=== PATIENT | female | born 1995 | race Caucasian/White ===

== ENCOUNTER 2016-11-04 11:29 | Emergency (ER) | payer OTHER ==
[2016-11-04 12:59] VITALS: BP 119/74
--- NOTE | 2016-11-04 14:00 | UC ---
Breast Complaint - HPI Summary HPI Summary: Delivered son at 35+4 on 10/27/16. Has been exclusively pumping since then, this morning developed fever over 101F with pain underneath L breast. - History of Current Complaint Hx Obtained From: Patient Breast Chief Complaint: Pain, Breast, Left Timing: Constant Breast Pain Radiates To: Left Breast Pain Aggravating Factors: Palpation Breast Associated Signs/Symptoms: Fever - Allergy/Home Medications Allergies/Adverse Reactions: Allergies Allergy/AdvReac Type Severity Reaction Status Date / Time Amoxicillin Allergy Severe Hives Verified 11/04/16 12:58 PMH/Surg Hx/FS Hx/Imm Hx Previously Healthy: Yes - Surgical History Surgical History: None - Family History Known Family History: Negative: Blood Disorder - Social History Lives: With Family Alcohol Use: None Substance Use Type: None Smoking Status (MU): Never Smoked Tobacco - Immunization History Vaccination Up to Date: Yes Review of Systems Constitutional: Fever Skin: Negative Eyes: Negative ENT: Negative Respiratory: Negative Cardiovascular: Negative Gastrointestinal: Negative Genitourinary: Negative Motor: Negative Neurovascular: Negative Musculoskeletal: Negative Neurological: Negative Psychological: Negative All Other Systems Reviewed And Are Negative: Yes Physical Exam Triage Information Reviewed: Yes Appearance: Well-Appearing, No Pain Distress, Well-Nourished Vital Signs: Initial Vital Signs Temp 98.8 F 11/04/16 12:49 Pulse 132 11/04/16 12:49 Resp 14 11/04/16 12:49 BP 119/74 11/04/16 12:49 Pulse Ox 99 11/04/16 12:49 Vital Signs Reviewed: Yes Eye Exam: Normal Eyes: Positive: Conjunctiva Clear ENT Exam: Normal ENT: Positive: Normal ENT inspection, Hearing grossly normal, Pharynx normal, TMs normal Dental Exam: Normal Neck exam: Normal Neck: Positive: Supple, Nontender, No Lymphadenopathy Respiratory Exam: Normal Respiratory: Positive: Chest non-tender, Lungs clear, Normal breath sounds, No respiratory distress, No accessory muscle use Cardiovascular: Positive: No Murmur, Tachycardia Musculoskeletal Exam: Normal Musculoskeletal: Positive: ROM Intact Neurological Exam: Normal Neurological: Positive: Alert Psychological Exam: Normal Skin Exam: Other - Redness, firm on inferior portion of L breast Breast Pain Course/Dx - Diagnoses Provider Diagnoses: Nonpurulent mastitis associated with Discharge - Discharge Plan Condition: Stable Disposition: HOME Prescriptions: Cephalexin CAP* [Keflex CAP*] 500 mg PO QID #28 cap Patient Education Materials: Mastitis (ED) Referrals: Non Staff,Doctor [Primary Care Provider] - Additional Instructions: Pump as much as possible. You can feed your milk to your baby regardless of when you took your medicine. If you want to keep trying to help your baby latch directly onto your nipples, you may have luck with a nipple shield -- these can be found at stores like [employer] in the /breast pump areas. I recommend you talk with a warehouse consultant. At [facility] you can reach the specialists through this number: [phone]. You can also talk to your child's ornament setter for referrals.
== END 2016-11-04 14:11 | disposition home or self-care (01) ==
LOC: UCCORT 11:29
DX: N61.0 Mastitis without abscess (principal); Z88.1 Allergy status to other antibiotic agents
CPT/HCPCS: 99212; G0463

== ENCOUNTER 2017-02-03 11:42 | Emergency (ER) | payer OTHER ==
[2017-02-03 12:00] VITALS: BP 122/77
--- NOTE | 2017-02-03 12:32 | UC ---
Ear Complaint HPI - HPI Summary HPI Summary: "a week of feeling like her ears are plugged. today they itch and burn." Sheis here with her 1 yr old dtr who has been pulling at her ears. She has been swimming 1 wk ago. not tender. no fevers, cough, congestion or sinus pain. Has a 3 mo old son with her and . Last depo was about 6 wks ago. - History of Current Complaint Chief Complaint: UCEar Stated Complaint: EAR Time Seen by Provider: 02/03/17 12:24 Hx Last Menstrual Period: depo shot - Allergies/Home Medications Allergies/Adverse Reactions: Allergies Allergy/AdvReac Type Severity Reaction Status Date / Time Amoxicillin Allergy Severe Hives Verified 11/04/16 12:58 PMH/Surg Hx/FS Hx/Imm Hx Previously Healthy: Yes - Surgical History Surgical History: None - Family History Known Family History: Positive: Respiratory Disease - no asthma Negative: Blood Disorder - Social History Alcohol Use: None Substance Use Type: None Smoking Status (MU): Never Smoked Tobacco - Immunization History Vaccination Up to Date: Yes Review of Systems Constitutional: Negative Skin: Negative Eyes: Negative ENT: Ear Ache Respiratory: Negative Cardiovascular: Negative Gastrointestinal: Negative Genitourinary: Negative Motor: Negative Neurovascular: Negative Musculoskeletal: Negative Neurological: Negative Psychological: Negative All Other Systems Reviewed And Are Negative: Yes Physical Exam Triage Information Reviewed: Yes Appearance: Well-Appearing, No Pain Distress, Well-Nourished Vital Signs: Initial Vital Signs Temp 97.5 F 02/03/17 11:58 Pulse 93 02/03/17 11:58 Resp 14 02/03/17 11:58 BP 122/77 02/03/17 11:58 Pulse Ox 98 02/03/17 11:58 Vital Signs Reviewed: Yes Eye Exam: Normal ENT: Positive: Hearing grossly normal, Pharynx normal, Other: - TMs - mild serous otitis b/l, rt > left. Negative: Pharyngeal erythema, Nasal drainage, Tonsillar swelling, Tonsillar exudate Dental Exam: Normal Neck exam: Normal Neck: Positive: Supple, Nontender, No Lymphadenopathy Respiratory Exam: Normal Respiratory: Positive: Lungs clear, Normal breath sounds, No respiratory distress, No accessory muscle use Cardiovascular Exam: Normal Cardiovascular: Positive: RRR, No Murmur, Pulses Normal, Brisk Capillary Refill Abdomen Description: Positive: Nontender, Soft Musculoskeletal Exam: Normal Neurological Exam: Normal Psychological Exam: Normal Skin Exam: Normal Ear Complaint Course/Dx - Differential Dx/Diagnosis Differential Diagnosis/HQI/PQRI: Cerumen Impaction, Otitis Externa, Otitis Media , Other - serous otitis Provider Diagnoses: B/L serous otitis Discharge - Discharge Plan Condition: Stable Disposition: HOME Prescriptions: Fluticasone Propionate (Nasal) [Allergy Nasal [place] [address] Ho] 50 mcg NA DAILY #1 spr Patient Education Materials: Serous Otitis Media (ED) Referrals: No Primary Care Phys,NOPCP [Primary Care Provider] - [facility] [Provider Group] Additional Instructions: You can also take an OTC anti-histamine such as cetirizine daily that may help your symptoms.
== END 2017-02-03 12:56 | disposition home or self-care (01) ==
LOC: UCCORT 11:42
DX: H65.93 Unspecified nonsuppurative otitis media, bilateral (principal)
CPT/HCPCS: 99212; G0463

== ENCOUNTER 2017-04-15 12:19 | Emergency (ER) | payer OTHER ==
[2017-04-15 13:13] VITALS: BP 121/80
--- NOTE | 2017-04-15 14:46 | UC ---
Ear Complaint HPI - HPI Summary HPI Summary: patient has had ear pain for 2 months, was given flonase at one point but does not use it on a regular basis - History of Current Complaint Chief Complaint: UCEar Stated Complaint: BILATERAL EAR PAIN Time Seen by Provider: 04/15/17 14:25 Hx Obtained From: Patient Hx Last Menstrual Period: on depo ?: No Onset/Duration: Sudden Onset, Lasting Weeks Severity Initially: Moderate Severity Currently: Moderate Related History: Seasonal Allergies - Allergies/Home Medications Allergies/Adverse Reactions: Allergies Allergy/AdvReac Type Severity Reaction Status Date / Time Amoxicillin Allergy Severe Hives Verified 04/15/17 13:09 Home Medications: Home Medications Melatonin [Melatonin Maximum Strengt] 5 mg PO BEDTIME 04/15/17 [History Confirmed 04/15/17] medroxyPROGESTERone ACETATE* [DEPO-Provera] 150 mg IM SEE INSTRUCTIONS 04/15/17 [History Confirmed 04/15/17] PMH/Surg Hx/FS Hx/Imm Hx Previously Healthy: Yes - Surgical History Surgical History: None - Family History Known Family History: Positive: Respiratory Disease - no asthma Negative: Blood Disorder - Social History Alcohol Use: None Substance Use Type: None Smoking Status (MU): Never Smoked Tobacco - Immunization History Vaccination Up to Date: Yes Review of Systems Constitutional: Negative Skin: Negative Eyes: Negative ENT: Ear Ache Respiratory: Negative Cardiovascular: Negative Gastrointestinal: Negative Genitourinary: Negative Motor: Negative Neurovascular: Negative Musculoskeletal: Negative Neurological: Negative Psychological: Negative Is Patient Immunocompromised?: No All Other Systems Reviewed And Are Negative: Yes Physical Exam Triage Information Reviewed: Yes Appearance: Well-Appearing, Well-Nourished, Pain Distress Vital Signs: Initial Vital Signs Temp 98.8 F 04/15/17 13:09 Pulse 103 04/15/17 13:09 Resp 16 04/15/17 13:09 BP 121/80 04/15/17 13:09 Pulse Ox 98 04/15/17 13:09 Vital Signs Reviewed: Yes Eye Exam: Normal ENT Exam: Normal ENT: Positive: Pharynx normal, TMs normal, Other: - fluid behind both ears Dental Exam: Normal Neck exam: Normal Respiratory Exam: Normal Respiratory: Positive: Chest non-tender, Lungs clear, Normal breath sounds Cardiovascular Exam: Normal Cardiovascular: Positive: RRR, No Murmur, Pulses Normal Abdominal Exam: Normal Bowel Sounds: Positive: Present Musculoskeletal Exam: Normal Musculoskeletal: Positive: Strength Intact, ROM Intact, No Edema Neurological Exam: Normal Psychological Exam: Normal Skin Exam: Normal Ear Complaint Course/Dx - Course Course Of Treatment: hx obtained, exam performed ,meds reviewed, serous otitis biltareal - Differential Dx/Diagnosis Differential Diagnosis/HQI/PQRI: Otitis Externa, Otitis Media, URI, Other Provider Diagnoses: serous otitis bilateral Discharge - Discharge Plan Condition: Stable Disposition: HOME Prescriptions: predniSONE TAB* [Deltasone TAB*] 20 mg PO DAILY #18 tab Patient Education Materials: Serous Otitis Media (ED) Referrals: No Primary Care Phys,NOPCP [Primary Care Provider] - Additional Instructions: 1. take medication as prescribed 2. I recommedn continuing with the flonase
== END 2017-04-15 14:50 | disposition home or self-care (01) ==
LOC: UCCORT 12:19
DX: H65.93 Unspecified nonsuppurative otitis media, bilateral (principal); Z88.1 Allergy status to other antibiotic agents
CPT/HCPCS: 99212; G0463

== ENCOUNTER 2017-06-22 16:55 | Emergency (ER) | payer OTHER ==
[2017-06-22 17:04] VITALS: BP 125/64
[2017-06-22] MEDS ORDERED: methylPREDNISolone 125 MG* 2 ML VIAL IM ONE (17:09)
--- NOTE | 2017-06-22 17:19 | UC ---
Skin Complaint HPI - HPI Summary HPI Summary: Pt c/o sudden onset of pruritic, erythematous rash that began on neck and has spread across upper torso and upper extremities. Pt denies, angio edema, throt or tongue swelling, or difficulty breathing. - History of Current Complaint Chief Complaint: UCSkin Time Seen by Provider: 06/22/17 16:59 Stated Complaint: SKIN COMPLAINT Hx Obtained From: Patient Hx Last Menstrual Period: unknown, depo ?: No Onset/Duration: Sudden Onset, Lasting Hours, Worse Since - onset Skin Exposure Onset/Duration: Hours Ago Timing: Constant Onset Severity: Mild Current Severity: Moderate Location: Diffuse Character: Pruritus, Redness Aggravating Factor(s): Nothing Alleviating Factor(s): Unknown Associated Signs & Symptoms: Positive: Rash - Allergy/Home Medications Allergies/Adverse Reactions: Allergies Allergy/AdvReac Type Severity Reaction Status Date / Time Amoxicillin Allergy Severe Hives Verified 06/22/17 17:04 Review of Systems Constitutional: Negative Skin: Rash Eyes: Negative ENT: Negative Respiratory: Negative Cardiovascular: Negative Gastrointestinal: Negative Genitourinary: Negative Motor: Negative Neurovascular: Negative Musculoskeletal: Negative Neurological: Negative Psychological: Negative Is Patient Immunocompromised?: No All Other Systems Reviewed And Are Negative: Yes PMH/Surg Hx/FS Hx/Imm Hx Previously Healthy: Yes - Surgical History Surgical History: None - Family History Known Family History: Positive: Respiratory Disease - no asthma Negative: Blood Disorder - Social History Occupation: Employed Full-time Lives: With Family Alcohol Use: None Substance Use Type: None Smoking Status (MU): Never Smoked Tobacco Have You Smoked in the Last Year: No - Immunization History Vaccination Up to Date: Yes Physical Exam Triage Information Reviewed: Yes Appearance: Well-Appearing Vital Signs: Initial Vital Signs Temp 98.6 F 06/22/17 17:00 Pulse 65 06/22/17 17:00 Resp 16 06/22/17 17:00 BP 125/64 06/22/17 17:00 Pulse Ox 100 06/22/17 17:00 Vital Signs Reviewed: Yes Eye Exam: Normal ENT Exam: Normal Dental Exam: Normal Neck exam: Normal Respiratory Exam: Normal Cardiovascular Exam: Normal Abdominal Exam: Normal Musculoskeletal Exam: Normal Neurological Exam: Normal Psychological Exam: Normal Skin: Positive: rashes - diffuse urticaria on upper torso and extremities Course/Dx - Differential Diagnoses - Skin Complaint Differential Diagnoses: Allergic Reaction, Drug Rash, Urticaria - Diagnoses Provider Diagnoses: general allergic reaction- unknown allergen Discharge - Discharge Plan Condition: Stable Disposition: HOME Prescriptions: Cetirizine HCl [Eql All Day Allergy Child] 10 ml PO DAILY #70 [place] predniSONE TAB* [Deltasone TAB*] 40 mg PO DAILY #10 tab predniSONE TAB* [Deltasone TAB*] 5 mg PO DAILY #5 tab Patient Education Materials: General Allergic Reaction (ED) Referrals: No Primary Care Phys,NOPCP [Primary Care Provider] - As Soon As Possible
[2017-06-22] MEDS: diPHENhydraMINE PO* 50 MG PO ONE ×2 (17:20→17:31)
[2017-06-22] MEDS ORDERED: diPHENhydraMINE LIQ* 12.5 MG/5 ML UDC PO ONE (17:23)
== END 2017-06-22 17:36 | disposition home or self-care (01) ==
LOC: UCCORT 16:55
DX: T78.40XA Allergy, unspecified, initial encounter (principal); X58.XXXA Exposure to other specified factors, initial encounter; L50.9 Urticaria, unspecified; Z88.1 Allergy status to other antibiotic agents
CPT/HCPCS: 96372; 99212; A9270-GY; G0463; J2930

== ENCOUNTER 2017-07-08 09:18 | Emergency (ER) | payer OTHER ==
[2017-07-08 09:25] VITALS: BP 122/85
--- NOTE | 2017-07-08 09:47 | UC ---
Respiratory Complaint HPI - HPI Summary HPI Summary: Here for cough and congestion and sore throat. She has no chronic lung disease. Non smoker. This has been two days. - History of Current Complaint Chief Complaint: UCRespiratory Stated Complaint: RT EAR HEARING LOSS,COUGH/ST Time Seen by Provider: 07/08/17 09:36 Hx Obtained From: Patient Hx Last Menstrual Period: unknown, depo Onset/Duration: Gradual Onset, Lasting Days - started yesterday. Timing: Constant Severity Initially: Moderate Severity Currently: Moderate Character: Cough: Nonproductive Aggravating Factors: Deep Breaths, Recumbent Position Alleviating Factors: Upright Position, Spontaneous Resolution Associated Signs And Symptoms: Positive: Fever, Chills, URI, Nasal Congestion. Negative: Dyspnea, Calf Pain, Calf Swelling - Allergies/Home Medications Allergies/Adverse Reactions: Allergies Allergy/AdvReac Type Severity Reaction Status Date / Time Amoxicillin Allergy Severe Hives Verified 07/08/17 09:25 Home Medications: Home Medications Atenolol TAB* [Tenormin TAB* 50 MG] 50 mg PO DAILY 07/08/17 [History Confirmed 07/08/17] PMH/Surg Hx/FS Hx/Imm Hx Previously Healthy: No - Palpitations and thyroid disease. - Surgical History Surgical History: None - Family History Known Family History: Positive: Respiratory Disease - no asthma Negative: Blood Disorder - Social History Occupation: Employed Full-time Alcohol Use: None Substance Use Type: None Smoking Status (MU): Never Smoked Tobacco Have You Smoked in the Last Year: No - Immunization History Vaccination Up to Date: Yes Review of Systems Constitutional: Fever ENT: Sore Throat, Sinus Congestion Respiratory: Cough All Other Systems Reviewed And Are Negative: Yes Physical Exam Triage Information Reviewed: Yes Appearance: Well-Appearing, No Pain Distress, Well-Nourished Vital Signs: Initial Vital Signs Temp 97.5 F 07/08/17 09:21 Pulse 68 07/08/17 09:21 Resp 18 07/08/17 09:21 BP 122/85 07/08/17 09:21 Pulse Ox 100 07/08/17 09:21 Vital Signs Reviewed: Yes Eyes: Positive: Conjunctiva Clear ENT: Positive: Pharynx normal, Nasal congestion, Hoarse voice. Negative: Pharyngeal erythema, Tonsillar swelling, Tonsillar exudate, Sinus tenderness, Uvula midline Neck: Positive: Supple, Nontender, No Lymphadenopathy Respiratory: Positive: Lungs clear, Normal breath sounds, No respiratory distress, No accessory muscle use. Negative: Respiratory distress, Decreased breath sounds, Accessory muscle use, Crackles, Rhonchi, Stridor, Wheezing Cardiovascular: Positive: RRR, No Murmur, Pulses Normal, Brisk Capillary Refill Abdomen Description: Positive: Nontender, No Organomegaly, Soft. Negative: Distended, Guarding Musculoskeletal: Positive: Strength Intact, ROM Intact Neurological: Positive: Alert, Muscle Tone Normal, Fatigued Psychological: Positive: Age Appropriate Behavior Skin: Negative: rashes UC Diagnostic Evaluation - Laboratory O2 Sat by Pulse Oximetry: 100 Respiratory Course/Dx - Differential Dx/Diagnosis Provider Diagnoses: viral uri. Discharge - Discharge Plan Condition: Good Disposition: HOME Patient Education Materials: Upper Respiratory Infection (ED) Forms: *Work Release Referrals: RUBY Madsen [Primary Care Provider] -
== END 2017-07-08 09:51 | disposition home or self-care (01) ==
LOC: UCCORT 09:18
DX: J06.9 Acute upper respiratory infection, unspecified (principal)
CPT/HCPCS: 99211; G0463

== ENCOUNTER 2017-12-02 16:54 | Emergency (ER) | payer OTHER ==
[2017-12-02 17:25] VITALS: BP 125/84
--- NOTE | 2017-12-02 17:36 | UC ---
Ear Complaint HPI - HPI Summary HPI Summary: C/O earache over the last several weeks. Unable to pop ears. No fevers. - History of Current Complaint Chief Complaint: UCEar Stated Complaint: BILATERAL EAR PAIN Time Seen by Provider: 12/02/17 17:28 Hx Obtained From: Patient Hx Last Menstrual Period: depo ?: No Onset/Duration: Gradual Onset, Lasting Weeks - 2, Still Present Severity Initially: Mild Severity Currently: Moderate Pain Intensity: 5 Alleviating Factors: Nothing Related History: Seasonal Allergies - Allergies/Home Medications Allergies/Adverse Reactions: Allergies Allergy/AdvReac Type Severity Reaction Status Date / Time MS Amoxicillin [Amoxicillin] Allergy Severe Hives Verified 07/08/17 09:25 amoxicillin Allergy Hives Verified 12/02/17 17:19 PMH/Surg Hx/FS Hx/Imm Hx Endocrine History: Diabetes, Hyperthyroidism - Surgical History Surgical History: None - Family History Known Family History: Positive: Respiratory Disease - no asthma Negative: Diabetes, Blood Disorder - Social History Occupation: Employed Full-time Lives: With Family Alcohol Use: None Substance Use Type: None Smoking Status (MU): Never Smoked Tobacco Have You Smoked in the Last Year: No - Immunization History Vaccination Up to Date: Yes Review of Systems ENT: Ear Ache, Nasal Discharge Is Patient Immunocompromised?: Yes - Diabetes All Other Systems Reviewed And Are Negative: Yes Physical Exam Triage Information Reviewed: Yes Appearance: Well-Appearing, No Pain Distress, Thin Vital Signs: Initial Vital Signs Temp 99 F 12/02/17 17:20 Pulse 98 12/02/17 17:20 Resp 16 12/02/17 17:20 BP 125/84 12/02/17 17:20 Pulse Ox 98 12/02/17 17:20 Vital Signs Reviewed: Yes Eyes: Positive: Conjunctiva Clear ENT: Positive: Pharynx normal, Nasal congestion - with allergic changes, TMs normal Neck exam: Normal Respiratory Exam: Normal Cardiovascular Exam: Normal Musculoskeletal Exam: Normal Neurological Exam: Normal Psychological Exam: Normal Skin Exam: Normal Ear Complaint Course/Dx - Differential Dx/Diagnosis Differential Diagnosis/HQI/PQRI: Barotrauma, Otitis Externa, Otitis Media Provider Diagnoses: Allergic rhinitis. Bilateral eustachian tube dysfunction. Discharge - Sign-Out/Discharge Documenting (check all that apply): Discharge/Admit/Transfer - Discharge Plan Condition: Stable Disposition: HOME Patient Education Materials: Allergic Rhinitis (ED), Earache (ED) Referrals: RUBY Madsen [Primary Care Provider] - Additional Instructions: NEILMED SINUS RINSE: CHECK OUT AT [facility] [employer] Saline nasal wash helps with mucous, allergies and congestion. It can be used up to twice a day or only as needed. Use lukewarm tap water. It does not have to be sterilized or distilled water. Do 1/3 on each side and snort out of both nostrils. Repeat the process with 1/6 of the bottle on each side with snorting in between to finish the solution in the bottle - Billing Disposition and Condition Condition: STABLE Disposition: HOME
== END 2017-12-02 17:51 | disposition home or self-care (01) ==
LOC: UCCORT 16:54
DX: J30.9 Allergic rhinitis, unspecified (principal); H69.93 Unspecified Eustachian tube disorder, bilateral; Z88.3 Allergy status to other anti-infective agents
CPT/HCPCS: 99211; G0463

== ENCOUNTER 2018-07-16 10:36 | Emergency (ER) | payer OTHER ==
--- OUTSIDE RECORDS SUMMARY | 2018-07-16 10:48 | XMS REPORT | Continuity of Care Document ---
:1995 External Reference #:[id number] Author Name Anshul Shelby Care Team Providers Name Role Phone Peterson John MD Primary Care Physician Unavailable Payers Type Date Identification Numbers Payment Provider Subscriber Policy Number: [id number] Sunil Gonzalez PayID: [id number] [address] [place] [address] Advance Directives Description No Information Available Problems Description No Information Family History Date Family Member(s) Problem(s) Comments Mother Arthritis Mother Hypothyroidism Social History Type Date Description Comments Sex Unknown Marital Status Single Lives With Boyfriend Occupation employed at [employer] ETOH Use Denies alcohol use Recreational Drug Use Denies Drug Use Tobacco Use Start: Unknown End: Patient is a former smoker Unknown Smoking Status Reviewed: 07/11/18 Patient is a former smoker Exercise Type/Frequency Exercises sporadically Allergies, Adverse Reactions, Alerts Date Description Reaction Status Severity Comments 04/25/2018 Amoxicillin Urticaria Active Mild Medications Medication Date Status Form Strength Qnty SIG Indications Ordering Provider Freestyle 05/30 Active Device 1unit use every E10.9 Laurent Christ/[place]/Flash s 8 hours MD [facility] Monitoring System with sensor Freestyle 05/[address] E10.9 Laurent Christ/Sensor/Flash s device on MD Kwame Monitoring System skin every 14 days; use with reader every 8 hours 2 per month Pen [place] 04/26 Active Misc 31G X 8 150un use with Laurent mm its insulin MD Kwame pens 4 times daily. Precision Xtra 04/25 Active Strips 100un use 4 E10.9 Laurent Blood Glucose Test /2017 its times MD Kwame Strips daily and as needed for glucose testing Precision Xtra 09/27 Active Device 1unit Use With E10.9 Laurent s Glucose/K MD Kwame etone Strips Precision Xtra 04/25 Active Strips 20uni Use as E10.9 Laurent Ketone ts Needed MD Kwame For Ketone Testing Medroxyprogesteron Active Suspension 150mg/ml inject Unknown e Acetate /0000 once every 3 months Methimazole 00 Active Tablets 10mg 60tab 20mg by Laurent /0000 s mouth MD Kwame once daily in the morning Keto-Diastix Active Strips as needed Unknown /0000 Admelog Solostar Active Solution 100Unit/M 15ml use 10 Laurent Pen-Inject L units MD Kwame with every meal plus sliding scale, max 50 units daily Basaglar Kwikpen Active Solution 100Unit/M 15ml 40 units Laurent /0000 Pen-Inject L daily MD Kwame True Metrix Go Active Kit w/Device use daily Unknown Blood Glucose /0000 as Meter directed last visit: 08/09/17 True Metrix Blood Active Strips test 3 Unknown Glucosetest Strips /0000 times daily last visit: 08/09/17 Lantus Solostar 04/08 Hx Solution 100Unit/M 15 units Pen-Inject L daily MD Kwame - 03/30 Atenolol Hx Tablets 50mg 30tab 1 by Laurent /0000 s mouth MD Kwame - every day 07/11 Humalog Hx Solution 100Unit/M 30 units Unknown /0000 L daily - 04/24 Immunizations Description No Information Available Vital Signs Date Vital Result Comment 07/11/2018 9:10am Height 67 inches 5'7" Weight 129.00 lb w/ shoes Heart Rate 70 /min BP Systolic Sitting 113 mmHg BP Diastolic Sitting 74 mmHg BMI (Body Mass Index) 20.2 kg/m2 05/30/2018 9:14am Height 67 inches 5'7" Weight 116.00 lb w/ shoes Heart Rate 77 /min BP Systolic Sitting 121 mmHg BP Diastolic Sitting 74 mmHg BMI (Body Mass Index) 18.2 kg/m2 04/25/2018 10:49am Height 67 inches 5'7" Weight 104.00 lb w/ shoes Heart Rate 112 /min BP Systolic Sitting 119 mmHg BP Diastolic Sitting 77 mmHg BMI (Body Mass Index) 16.3 kg/m2 Results Test Date Facility Test Result H/L Range Note Laboratory test finding 07/11/2018 [facility] Glucose Random 264 Hemoglobin A1c 10.7 High 5-7 CBC Auto Diff 06/06/2018 [facility] White Blood 4.8 10^3/uL N 3.5-10.[address] [place] [address] [phone] Red Blood Count 5.20 10^6/uL N 4.00-5.40 Hemoglobin 14.2 g/dL N 12.0-16.0 Hematocrit 42 % N 35-47 Mean Corpuscular Volume 81 fL N 80-97 Mean Corpuscular Hemoglobin 27 pg N 27-31 Mean Corpuscular HGB Conc 34 g/dL N 31-36 Red Cell Distribution Width 13 % N 10.5-15 Platelet Count 167 10^3/uL N 150-450 Mean Platelet Volume 9.0 fL N 7.4-10.4 Abs Neutrophils 2.7 10^3/uL N 1.5-7.7 Abs Lymphocytes 1.6 10^3/uL N 1.0-4.8 Abs Monocytes 0.4 10^3/uL N 0-0.8 Abs Eosinophils 0.1 10^3/uL N 0-0.6 Abs Basophils 0 10^3/uL N 0-0.2 Abs Nucleated RBC 0 10^3/uL Granulocyte % 56.7 % N 38-83 Lymphocyte % 34.4 % N 25-47 Monocyte % 7.5 % High 0-7 Eosinophil % 1.2 % N 0-6 Basophil % 0.2 % N 0-2 Nucleated Red Blood Cells % 0 Laboratory test 06/06/2018 [facility] TSH (Thyroid 0.00 Low 0.34-5.[address] Stim Horm) mcIU/[place] [address] [phone] Free T4 (Free Thyroxine) 1.44 ng/dL High 0.61-1.12 T3 Free 5.20 pg/mL High 2.5-3.9 Comp Metabolic Panel 06/06/2018 [facility] Sodium 134 mmol/L Low 135-[address] [place] [address] [phone] Potassium 4.4 mmol/L N 3.5-5.0 Chloride 103 mmol/L N 101-111 Co2 Carbon Dioxide 22 mmol/L N 22-32 Anion Gap 9 mmol/L N 2-11 Glucose 411 mg/dL High 70-100 Blood Urea Nitrogen 15 mg/dL N 6-24 Creatinine 0.64 mg/dL N 0.51-0.95 BUN/Creatinine Ratio 23.4 High 8-20 Calcium 9.8 mg/dL N 8.6-10.3 Total Protein 6.7 g/dL N 6.4-8.9 Albumin 4.0 g/dL N 3.2-5.2 Globulin 2.7 g/dL N 2-4 Albumin/Globulin Ratio 1.5 N 1-3 Total Bilirubin 0.70 mg/dL N 0.2-1.0 Alkaline Phosphatase 118 U/L High 34-104 Alt 17 U/L N 7-52 Ast 17 U/L N 13-39 Egfr Non- 115.0 >60 Egfr 139.1 >60 1 Laboratory test finding 05/30/2018 [facility] Glucose Random 236 Laboratory test finding 04/25/2018 [facility] Glucose Random 425 Ketones 0.1 1 Because ethnic data is not always readily available, this report includes an eGFR for both -Americans and non- Americans. The National Kidney Disease Education Program (NKDEP) does not endorse the use of the MDRD equation for patients that are not between the ages of 18 and 70, are , have extremes of body size, muscle mass, or nutritional status, or are non- or non-. According to the National Kidney Foundation, irrespective of diagnosis, the stage of the disease is based on the level of kidney function: Stage Description GFR(mL/min/1.73 m(2)) 1 Kidney damage with normal or decreased GFR 90 2 Kidney damage with mild decrease in GFR 60-89 3 Moderate decrease in GFR 30-59 4 Severe decrease in GFR 15-29 5 Kidney failure <15 (or dialysis) Procedures Description No Information Available Encounters Type Date Location Provider Dx Diagnosis Office Visit 05/30/2018 [facility] Mehran Puente MD E10.9 Type 1 diabetes 9:20a [facility] mellitus without complications E05.00 Thyrotoxicosis w diffuse goiter w/o thyrotoxic crisis Office Visit 04/25/2018 [facility] and Mehran Puente, E10.9 Type 1 diabetes 11:20a [facility] of mellitus without [facility] complications E05.00 Thyrotoxicosis w diffuse goiter w/o thyrotoxic crisis Plan of Treatment 07/11/2018 - Mehran Puente MDE10.9 Type 1 diabetes mellitus without complicationsNew Labs:Glucose Random, Scheduled: 07/11/18Hemoglobin A1c, Scheduled: 07/11/18Instructions:1. Increase Basaglar to 40 units once daily. 2. Continue Admelog as you are. 3. Start using Freestyle Christ sensory and reader. 4. Stop atenolol. 5. Get thyroid function tests today. 6. Plan to reduce methimazole in the future. 7. Return in 6 weeks for a follow-up visit at [facility] in [place].E05.00 Thyrotoxicosis with diffuse goiter without thyrotoxic crisis
[2018-07-16 11:05] VITALS: BP 131/77
--- NOTE | 2018-07-16 11:18 | UC ---
Back Pain HPI - HPI Summary HPI Summary: lower back pain x 3 days pain is sever 8 out of 10 , sharp no radiation of pain , worse with movements, better with rest - History of Current Complaint Chief Complaint: UCBackPain Stated Complaint: LOWER BACK PAIN Time Seen by Provider: 07/16/18 10:56 Hx Obtained From: Patient Hx Last Menstrual Period: unknown ?: No Onset/Duration: Gradual Onset, Lasting Days - 3, Still Present Timing: Constant Severity Initially: Moderate Severity Currently: Severe Pain Intensity: 8 Back Pain: Is Discrete @ - lower back Character: Spasmodic Aggravating Factor(s): Movement, Lifting, Bending, Walking, Cough Alleviating Factor(s): Rest Associated Signs And Symptoms: Positive: Weakness. Negative: Swelling, Redness , Bruising, Fever, Numbness, Tingling, Abdominal Pain, Flank Pain, Bladder Incontinence, Bowel Incontinence, Weight Loss, Pain with Weight Bearing - Allergies/Home Medications Allergies/Adverse Reactions: Allergies Allergy/AdvReac Type Severity Reaction Status Date / Time amoxicillin Allergy Hives Verified 12/02/17 17:19 Home Medications: Home Medications [place] Insulin 0 ml SUBCUT TID PRN 07/16/18 [History] Insulin Glargine,Hum.rec.anlog [Basaglar Kwikpen] 40 unit SC DAILY 07/16/18 [ History Confirmed 07/16/18] PMH/Surg Hx/FS Hx/Imm Hx Endocrine History: Diabetes, Hyperthyroidism - Surgical History Surgical History: None - Family History Known Family History: Positive: Respiratory Disease - no asthma Negative: Diabetes, Blood Disorder - Social History Alcohol Use: None Substance Use Type: None Smoking Status (MU): Never Smoked Tobacco Have You Smoked in the Last Year: No - Immunization History Vaccination Up to Date: Yes Review of Systems All Other Systems Reviewed And Are Negative: Yes Constitutional: Positive: Negative Skin: Positive: Negative Eyes: Positive: Negative ENT: Positive: Negative Respiratory: Positive: Negative Is Patient Immunocompromised?: No Physical Exam Triage Information Reviewed: Yes Appearance: Well-Nourished, Pain Distress Vital Signs: Initial Vital Signs Temp 98.2 F 07/16/18 11:01 Pulse 100 07/16/18 11:01 Resp 15 07/16/18 11:01 BP 131/77 07/16/18 11:01 Pulse Ox 99 07/16/18 11:01 Vital Signs Reviewed: Yes Eyes: Positive: Conjunctiva Clear ENT: Positive: Normal ENT inspection, Hearing grossly normal, Pharynx normal Neck: Positive: Supple, Nontender, No Lymphadenopathy Respiratory: Positive: Chest non-tender, Lungs clear, Normal breath sounds Cardiovascular: Positive: No Murmur, Tachycardia Musculoskeletal: Positive: Other: - lower back : no swelling, no erythema, no tenderness, pain with flexion and extension , limited ROM on flexion Back Pain Course/Dx - Differential Dx/Diagnosis Provider Diagnosis: Strain of fascia of lower back Discharge - Sign-Out/Discharge Documenting (check all that apply): Patient Departure All imaging exams completed and their final reports reviewed: No Studies - Discharge Plan Condition: Stable Disposition: HOME Prescriptions: Cyclobenzaprine TAB* [Flexeril 10 MG TAB*] 10 mg PO BID PRN #20 tab PRN Reason: Pain Naproxen [Naproxen 500 mg tab] 500 mg PO BID #20 tablet. Patient Education Materials: Low Back Strain (ED) Forms: *Work Release Referrals: Esther Crawley MD [Primary Care Provider] - 7 Days - Billing Disposition and Condition Condition: STABLE Disposition: Home
== END 2018-07-16 11:22 | disposition home or self-care (01) ==
LOC: UCCORT 10:36
DX: X58.XXXA Exposure to other specified factors, initial encounter (principal); Y92.9 Unspecified place or not applicable; S39.012A Strain of muscle, fascia and tendon of lower back, initial encounter; Z88.0 Allergy status to penicillin; E11.9 Type 2 diabetes mellitus without complications; Z79.4 Long term (current) use of insulin
CPT/HCPCS: 99212; G0463

== ENCOUNTER 2018-09-18 09:30 | Emergency (ER) | payer OTHER ==
[2018-09-18] MEDS ORDERED: Ondansetron ODT TAB* 4 MG PO ONE (09:53)
--- NOTE | 2018-09-18 10:42 | UC ---
General HPI - HPI Summary HPI Summary: nausea x 2 days. vomiting x 1 day. weakness. BS was "high"/not measurable 2 days ago and is currently 456 on continuos/ 367 glucometer. Hx IDDM. last insulin was long acting last pm 40 units. none today because unable to eat/drink without vomiting. no fever or diarrhea. admits to prior Hx DKA and this feels the same. - History of Current Complaint Chief Complaint: UCGI Stated Complaint: HIGH BLOOD SUGAR, NAUSEA Time Seen by Provider: 09/18/18 10:33 Hx Obtained From: Patient Hx Last Menstrual Period: unknown Onset/Duration: Gradual Onset Timing: Constant Pain Intensity: 8 Associated Signs & Symptoms: Negative: Cough, Chest Pain, SOB - Allergy/Home Medications Allergies/Adverse Reactions: Allergies Allergy/AdvReac Type Severity Reaction Status Date / Time amoxicillin Allergy Hives Verified 09/18/18 10:18 Home Medications: Home Medications Insulin Glargine,Hum.rec.anlog [Basaglar Kwikpen] 40 unit SC QPM 09/18/18 [ History Confirmed 09/18/18] Methimazole TAB* [Tapazole TAB*] 30 mg PO DAILY 09/18/18 [History Confirmed ] PMH/Surg Hx/FS Hx/Imm Hx Endocrine History: Diabetes, Thyroid Disease - Surgical History Surgical History: None - Family History Known Family History: Positive: Respiratory Disease - no asthma Negative: Diabetes, Blood Disorder - Social History Alcohol Use: None Substance Use Type: None Smoking Status (MU): Never Smoked Tobacco Have You Smoked in the Last Year: No - Immunization History Vaccination Up to Date: Yes Review of Systems All Other Systems Reviewed And Are Negative: Yes Constitutional: Positive: Fatigue Skin: Positive: Negative Eyes: Positive: Negative ENT: Positive: Negative Respiratory: Positive: Negative Cardiovascular: Positive: Palpitations - chronic Gastrointestinal: Positive: Vomiting, Nausea. Negative: Abdominal Pain, Diarrhea Genitourinary: Negative: Dysuria, Frequency, Urgency Motor: Positive: Weakness Neurovascular: Positive: Negative Musculoskeletal: Positive: Negative Neurological: Positive: Negative Psychological: Positive: Negative Physical Exam Triage Information Reviewed: Yes Appearance: Ill-Appearing - but non toxic, Other: - ketotic odor to breath Vital Signs: Initial Vital Signs Temp 98.3 F 09/18/18 10:08 Pulse 137 09/18/18 10:08 Resp 18 09/18/18 10:08 BP 141/69 09/18/18 10:08 Pulse Ox 100 09/18/18 10:08 Vital Signs Reviewed: Yes Eyes: Positive: Conjunctiva Clear ENT: Positive: TMs normal, Other - Lips dry. Negative: Pharyngeal erythema, Nasal congestion, Nasal drainage Neck: Positive: Supple, Nontender, No Lymphadenopathy Respiratory: Positive: Lungs clear, Normal breath sounds, No respiratory distress Cardiovascular: Positive: No Murmur, Tachycardia - 120 Abdomen Description: Positive: Nontender, No Organomegaly, Soft. Negative: Distended, Guarding Bowel Sounds: Positive: Present Musculoskeletal: Positive: ROM Intact Neurological: Positive: Alert Psychological: Positive: Normal Response To Family, Age Appropriate Behavior Skin Exam: Normal Course/Dx - Differential Dx - Multi-Symptom Differential Diagnoses: Other - DKA, Dehydration, hyperglycemia, n/v, electrolytes abnormalities - Diagnoses Provider Diagnosis: Hyperglycemia due to type 1 diabetes mellitus, Dehydration, Nausea & vomiting, Weakness Discharge - Sign-Out/Discharge Documenting (check all that apply): Patient Departure All imaging exams completed and their final reports reviewed: No Studies - Discharge Plan Condition: Stable Disposition: TRANS HIGHER LVL OF CARE FAC Referrals: Esther Crawley MD [Primary Care Provider] - - Billing Disposition and Condition Condition: STABLE Disposition: Trans Higher Lvl of Care Fac
[2018-09-18] MEDS ORDERED: NS 0.9% 1000 ML** 1,000 ML IV ONE (10:52)
[2018-09-18 11:09] VITALS: BP 148/75
== END 2018-09-18 11:15 | disposition short-term general hospital (02) ==
LOC: UCCORT 09:30
DX: E10.65 Type 1 diabetes mellitus with hyperglycemia (principal); E86.0 Dehydration; R11.2 Nausea with vomiting, unspecified; E07.9 Disorder of thyroid, unspecified; R53.1 Weakness; Z88.0 Allergy status to penicillin; Z79.4 Long term (current) use of insulin; Z79.899 Other long term (current) drug therapy
CPT/HCPCS: 99213; A9270-GY; G0463

== ENCOUNTER 2018-12-05 10:34 | Emergency (ER) | payer OTHER ==
[2018-12-05 10:51] VITALS: BP 128/86
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
[2018-12-05] MEDS ORDERED: cefTRIAXone VIAL(*) 250 MG VIAL IM ONE (11:35)
[2018-12-05] MEDS ORDERED: Lidocaine 1%* 5 ML VIAL INJ ONE (11:37)
[2018-12-05] MEDS ORDERED: Azithromycin TAB* 250 MG PO ONE (11:37)
[2018-12-06 12:58] LABS: Neisseria gonorrhoeae (GC) RNA Negative (Negative)
[2018-12-06 13:13] LABS: Trichomonas vaginalis Result Negative (Negative)
--- NOTE | 2018-12-06 13:42 | UC ---
- Progress Note Progress Note: Laboratory results come back from December 05, 2018 showing a positive chlamydia. Patient was treated with Rocephin and azithromycin therefore she has been treated for the chlamydia. Nursing to call the patient and inform them of the results. Patient to avoid sexual contact for at least 7 days. Course/Dx - Diagnoses Provider Diagnoses: Pelvic inflammatory disease Discharge - Sign-Out/Discharge Documenting (check all that apply): Patient Departure All imaging exams completed and their final reports reviewed: No Studies - Discharge Plan Condition: Stable Disposition: HOME Patient Education Materials: Pelvic Inflammatory Disease (ED) Referrals: Peterson John MD [Primary Care Provider] - 3 Days Additional Instructions: Your exam today was consistent with a condition called pelvic inflammatory disease. The most common cause of this is a sexually transmitted infection therefore test for this was done. We will contact you with any positive results. You were also treated today for possible infection with an injection of an antibiotic called ceftriaxone and given a dose of an oral antibiotic called azithromycin. This would treat for both gonorrhea and chlamydia. The urine test performed in the clinic today was normal except for some glucose. The urine was negative. You should avoid sexual intercourse for the next 7 days. To help prevent sexually transmitted infections you should consistently use condoms. Follow up with your primary care provider within 3 days if symptoms persist. Seek immediate medical attention in the emergency room if you have fever greater than 100.5 F, have severe abdominal pain, persistent or projectile vomiting, blood in your vomit or stools, or any worsening of symptoms. - Billing Disposition and Condition Condition: STABLE Disposition: Home
== END 2018-12-05 12:38 | disposition home or self-care (01) ==
LOC: UCCORT 10:34
DX: N73.9 Female pelvic inflammatory disease, unspecified (principal); Z88.0 Allergy status to penicillin
CPT/HCPCS: 36415; 81003; 84702; 86703; 86780; 87480; 87491; 87510; 87591; 87661; 96372; 99213; A9270-GY; G0463; J0696